=== PATIENT | male | born 1955 | race African-American/Black ===

== ENCOUNTER 2022-08-22 19:28 | Inpatient (IN) | payer OTHER ==
[~2022-08-22] VITALS: Ht 172.7 cm; Wt 68.9 kg
[2022-08-22 19:33] VITALS: BP_SYST 147
--- NOTE | 2022-08-22 19:41 | NUR ---
Patient to ER bed 06 to gown for evaluation. Side rails up. Report given to SANTO APONTE.
--- NOTE | 2022-08-22 20:02 | NUR ---
Dr. GRAY at bedside examining the patient.
--- NOTE | 2022-08-22 20:03 | NUR ---
PT AOX3 NAD, EVEN UNLABORED RR. ACCORDING TO PT, PT SAT DOWN AND SOMEONE CALLED AN AMBULANCE. PT STATES HE LIVES WITH HIS SON. ACCORDING TO REPORT SON WAS CALLED AND IS ON HIS WAY. SAFETY RAILS IN PLACE CONNECTED TO VS MONITOR.
[2022-08-22] MEDS ORDERED: NACL 0.9% 1,000 ML IV ONE (20:15)
[2022-08-22 20:21] LABS: BASOPHILS # (AUTO) 0.1 K/uL (0.0-0.2); BASOPHILS % (AUTO) 1.2 % (0.0-2.0); EOSINOPHILS # (AUTO) 0.1 K/uL (0.0-0.4); EOSINOPHILS % (AUTO) 2.6 % (0.0-4.0); HEMATOCRIT 41.2 % (36-54); HEMOGLOBIN 13.7 g/dL (14.0-18.0); LYMPHOCYTES # (AUTO) 1.4 K/uL (1.0-5.5); LYMPHOCYTES % (AUTO) 28.5 % (20.5-51.5); MEAN CORPUSCULAR HEMOGLOBIN 29 pg (27-31); MEAN CORPUSCULAR HGB CONC 33 % (32-36); MEAN CORPUSCULAR VOLUME 88 fL (79.0-98.0); MONOCYTES # (AUTO) 0.6 K/uL (0.0-1.0); MONOCYTES % (AUTO) 12.6 % (1.7-9.3); NEUTROPHILS # (AUTO) 2.8 K/uL (1.8-7.7); NEUTROPHILS % (AUTO) 55.1 % (40.0-70.0); PLATELET COUNT (AUTO) 193 K/uL (130-430); RED BLOOD CELL COUNT(AUTO) 4.69 MIL/uL (4.2-6.2); RED CELL DISTRIBUTION WIDTH 15.6 % (9.0-15.0); WHITE BLOOD COUNT (AUTO) 5.1 K/uL (4.8-10.8)
[2022-08-22 20:25] LABS: ANION GAP 6 (5-15); CALCIUM 8.4 mg/dL (8.4-11.0); CHLORIDE 104 mmol/L (98-107); CREATININE 1.02 mg/dL (0.55-1.30); GFR AFRICAN AMERICAN 93 mL/min (>90); GLUCOSE 88 mg/dL (70-99); UREA NITROGEN, BLOOD 20 mg/dL (8-21)
[2022-08-22 20:33] LABS: ALANINE AMINOTRANSFERASE 14 U/L (12-78); ALBUMIN 3.5 g/dL (3.4-4.8); ASPARTATE AMINOTRANSFERASE 13 U/L (10-37); TOTAL BILIRUBIN 0.4 mg/dL (0.0-1.0)
[2022-08-22 21:00] LABS: BILIRUBIN,URINE NEGATIVE (NEGATIVE); BLOOD, URINE NEGATIVE (NEGATIVE); COLOR,URINE YELLOW (YELLOW); GLUCOSE,URINE NEGATIVE (NEGATIVE); KETONES,URINE NEGATIVE (NEGATIVE); NITRITE, URINE NEGATIVE (NEGATIVE); PROTEIN URINE NEGATIVE (NEGATIVE)
[2022-08-22 21:08] LABS: BACTERIA,URINE MANY /HPF (None Seen); CLARITY/URINE HAZY (CLEAR); LEUKOCYTE ESTERASE ,URINE 1+ (NEGATIVE); RBC,URINE 0-3 /HPF (0-3); UROBILINOGEN,URINE >=8 (0.2-1.0)
[2022-08-22 21:09] LABS: MUCUS,URINE None Seen /LPF (None Seen)
[2022-08-22] MEDS ORDERED: cefTRIAXone 1 GM in D5W 50 ML IV ONE (21:30)
[2022-08-22] MEDS ORDERED: cefTRIAXone 1 GM VIAL ONE (22:13)
--- NOTE | 2022-08-22 23:59 | NUR ---
Admit bed requested Patient will be admitted to care of Dr. Gonzalez Admitted to Telemetry unit. Diagnosis UTI Inpatient (Yes or No) Yes Observation (Yes or No) No Orientation concerns or request close to nursing station (Yes or No) Yes Covid Status NA On vent or bipap No Isolation requirements No Needs a sitter No From Home (Yes or if No enter name of facility) Yes Requires Dialysis (Yes or No) No Med Rec Completed (Yes of No) yes
[2022-08-23] MEDS ORDERED: LOSA100T4 PO (00:02)
[2022-08-23] MEDS ORDERED: NOR10 PO (00:02)
[2022-08-23] MEDS ORDERED: THIA100T73 PO (00:03)
[2022-08-23] MEDS ORDERED: MAGN100T3 PO (00:05)
[2022-08-23] MEDS ORDERED: ALBU2.5V7 INH (00:13)
[2022-08-23] MEDS ORDERED: FLUT200B INH (00:27)
--- NOTE | 2022-08-23 01:50 | NUR ---
LESTER MEJIA NUMBER [phone] CONTACT WITH ANY UPDATE OR QUESTIONS
[2022-08-23] MEDS: D5/0.45 NS 1,000 ML IV SCH ×2 (02:32→15:55)
--- NOTE | 2022-08-23 04:23 | NUR ---
pt iv site came out, started new site, pt c/o left shoulder pain, will make md aware. back in bed safety rails up, fluids started again, connected to continous monitoring.
--- NOTE | 2022-08-23 04:23 | NUR ---
# 20 gauge angiocath placed to lfa. Use of asceptic technique. Opsite placed over site. Blood return noted. Blood for lab drawn from site. Flushed with 10 cc of normal saline. No evidence of infiltration noted. Patient tolerated well.
[2022-08-23] MEDS ORDERED: MORPHINE 4 MG INJ. 4 MG/ML VIAL IVP ONE (04:30)
[2022-08-23 04:42] LABS: BASOPHILS # (AUTO) 0.1 K/uL (0.0-0.2); BASOPHILS % (AUTO) 1.1 % (0.0-2.0); EOSINOPHILS # (AUTO) 0.1 K/uL (0.0-0.4); EOSINOPHILS % (AUTO) 2.7 % (0.0-4.0); HEMATOCRIT 39.9 % (36-54); HEMOGLOBIN 13.2 g/dL (14.0-18.0); LYMPHOCYTES # (AUTO) 1.6 K/uL (1.0-5.5); MEAN CORPUSCULAR HEMOGLOBIN 29 pg (27-31); MEAN CORPUSCULAR HGB CONC 33 % (32-36); MEAN CORPUSCULAR VOLUME 87 fL (79.0-98.0); MONOCYTES # (AUTO) 0.7 K/uL (0.0-1.0); MONOCYTES % (AUTO) 14.3 % (1.7-9.3); NEUTROPHILS # (AUTO) 2.4 K/uL (1.8-7.7); NEUTROPHILS % (AUTO) 48.9 % (40.0-70.0); PLATELET COUNT (AUTO) 186 K/uL (130-430); RED BLOOD CELL COUNT(AUTO) 4.57 MIL/uL (4.2-6.2); RED CELL DISTRIBUTION WIDTH 15.6 % (9.0-15.0)
--- NOTE | 2022-08-23 04:46 | NUR ---
pt appears sleeping, eyes closed, vss nad even unlabored breathing connected to continous vs monitor safety rails in place.
[2022-08-23 05:43] LABS: ALBUMIN 3.2 g/dL (3.4-4.8); CALCIUM 8.1 mg/dL (8.4-11.0); CREATININE 0.97 mg/dL (0.55-1.30); TOTAL BILIRUBIN 0.4 mg/dL (0.0-1.0)
--- NOTE | 2022-08-23 06:57 | NUR ---
pt appears sleeping, eyes closed, vss nad even unlabored breathing connected to continous vs monitor safety rails in place.
--- NOTE | 2022-08-23 06:58 | NUR ---
pt now sitting on edge of bed pt vss nad even unlabored breathing connected to continous vs monitor safety rails in place.
--- NOTE | 2022-08-23 07:01 | NUR ---
please follow up with son and social work. son stated last night their section 8 was lost and does not know if he will have a place for his to father to come home to. flagged social help on interventions. pt gait is unsteady. earlier in the am, pt was assisted to bathroom and gait was very slow and unsteady. pt used cane. possible need for pt eval.
--- NOTE | 2022-08-23 07:50 | NUR ---
REPORT RECEIVED FROM SANTO APONTE FOR CONTINUITY OF CARE. PATIENT IN STABLE CONDITION.
[2022-08-23] MEDS: cefTRIAXone 1 GM IVPB PREMIX 50 ML IV SCH ×2 (08:13)
--- NOTE | 2022-08-23 08:15 | NUR ---
Patient will be admitted to care of Maya RN. Admitted to unit. Will go to room . Belongings list completed. Complete and up to date summary report printed. SBAR report to be given at bedside with opportunity for questions.
[2022-08-23] MEDS ORDERED: POTASSIUM CHLORIDE 20 MEQ TAB.PRT.SR PO ONE (08:30)
[2022-08-23 08:35] VITALS: BP_SYST 179
--- NOTE | 2022-08-23 08:35 | NUR ---
Admission Note Received patient from ER with diagnosis of UTI. Initial Plan of Care discussed-patient unable to verbalize his understanding-poor concentration/confused at times. Oriented to room, call light, pain management and safety. Side rails up x3, bed alarm on and room close to nursing station for safety. Pt encouraged to call nursing for asssist out of bed for safety-pt stated "okay". Call light within reach.
[2022-08-23 09:22] VITALS: BP_SYST 179
--- NOTE | 2022-08-23 11:15 | NUR ---
ROUNDS/OOB Pt assisted to the bathroom after pt trying to get out of bed by himself-he almost pulled out his IV line, pt reminded to call nursing for safety because he has IVF-pt stated " I forgot, just let me get to the bathroom". Pt with very unsteady gait-uses his own cane. Pt assisted back into bed, fresh gown and non-skid socks placed on pt, clean chix placed. All safety precautions remain in place. Pt shown call light and instructed on which button to push for assist out of bed. Call light within reach.
--- NOTE | 2022-08-23 15:33 | NUR ---
ROUNDS PT SLEEPING COMFORTABLY, NO APPEARENT DISTRESS. CALL LIGHT WITH IN REACH.
[2022-08-23 16:51] VITALS: BP_SYST 152
[2022-08-23 19:00] VITALS: BP_SYST 148
[2022-08-23 20:00] VITALS: BP_SYST 148
[2022-08-23] MEDS: BUDESONIDE 0.5 MG/2 ML AMPUL.NEB INH SCH (20:01)
--- NOTE | 2022-08-23 22:10 | NUR ---
CONSULTATION PAGED REASON FOR CONSULTATION: UTI WAS CONSULT CALLED? Y PERSON WHO WAS NOTIFIED: YOJANA CONSULTING PHYSICIAN: Dahiana [facility] SPECIALTY: [facility] PHONE NUMBER: [phone] REQUESTING PHYSICIAN: VESNA
[2022-08-24 00:07] VITALS: BP_SYST 149
[2022-08-24] MEDS: D5/0.45 NS 1,000 ML IV SCH ×2 (02:40→16:34)
[2022-08-24] MEDS: TEMAZEPAM 7.5 MG CAPSULE PO PRN (04:07)
[2022-08-24 06:17] LABS: BASOPHILS # (AUTO) 0.1 K/uL (0.0-0.2); BASOPHILS % (AUTO) 1.5 % (0.0-2.0); EOSINOPHILS # (AUTO) 0.1 K/uL (0.0-0.4); EOSINOPHILS % (AUTO) 3.1 % (0.0-4.0); HEMATOCRIT 41.6 % (36-54); LYMPHOCYTES # (AUTO) 1.4 K/uL (1.0-5.5); LYMPHOCYTES % (AUTO) 32.5 % (20.5-51.5); MEAN CORPUSCULAR HEMOGLOBIN 30 pg (27-31); MEAN CORPUSCULAR HGB CONC 34 % (32-36); MEAN CORPUSCULAR VOLUME 88 fL (79.0-98.0); MONOCYTES # (AUTO) 0.6 K/uL (0.0-1.0); MONOCYTES % (AUTO) 14.8 % (1.7-9.3); NEUTROPHILS # (AUTO) 2.1 K/uL (1.8-7.7); NEUTROPHILS % (AUTO) 48.1 % (40.0-70.0); PLATELET COUNT (AUTO) 184 K/uL (130-430); RED BLOOD CELL COUNT(AUTO) 4.76 MIL/uL (4.2-6.2); RED CELL DISTRIBUTION WIDTH 15.6 % (9.0-15.0); WHITE BLOOD COUNT (AUTO) 4.3 K/uL (4.8-10.8)
[2022-08-24 06:34] LABS: CALCIUM 8.9 mg/dL (8.4-11.0); CREATININE 0.95 mg/dL (0.55-1.30)
[2022-08-24] MEDS: BUDESONIDE 0.5 MG/2 ML AMPUL.NEB INH SCH ×2 (07:44→21:30)
[2022-08-24 08:24] VITALS: BP_SYST 197
[2022-08-24] MEDS ORDERED: FLUTICASONE FUROATE 200 MCG BLST.W.DEV INH SCH (09:00)
--- NOTE | 2022-08-24 10:02 | NUR ---
Jaquan, son, , call regarding update and requests thiamine given. Aware of urinary and blood pressure issues.
[2022-08-24] MEDS: amLODIPine BESYLATE 10 MG TABLET PO SCH (10:04)
[2022-08-24] MEDS: LOSARTAN POTASSIUM 50 MG TABLET (COZAAR) PO SCH (10:04)
[2022-08-24] MEDS: THIAMINE HCL 100 MG TABLET PO SCH (10:05)
--- NOTE | 2022-08-24 13:35 | NUR ---
CM spoke with patient son Tan [phone] regarding DCP. Son is requesting a SNF upon discharge as he has no home for his father to go to; also requests a SW consult. CM notified SW
[2022-08-24 13:53] VITALS: BP_SYST 162
--- NOTE | 2022-08-24 16:47 | NUR ---
Tag Press Operator re: child welfare social worker referral Attempted to speak with patient at bedside, however he was not able to answer the necessary questions needed for the interview. The patient presented confused and lethargic. I spoke with the son, Tan Lucas who advised that he and his father are homeless and have been residing in motels for about 3-4 months. He stated they have been working to get his section [address] He is relocating himself and the patient to [place] from [place]. I advised the son that I would provide some resources that would be beneficial for the patient. The son is aware that the CM is working to move towards SNF placement on the patient's behalf, which the son is in agreement with. Homeless resources were left for the son at bedside for his review.
[2022-08-24 19:01] VITALS: BP_SYST 138
[2022-08-24 20:00] VITALS: BP_SYST 144
[2022-08-25] MEDS: TEMAZEPAM 7.5 MG CAPSULE PO PRN (00:45)
[2022-08-25] MEDS ORDERED: cefTRIAXone 1 GM VIAL ONE (01:11)
[2022-08-25] MEDS: cefTRIAXone 1 GM IVPB PREMIX 50 ML IV SCH (01:26)
[2022-08-25 01:49] VITALS: BP_SYST 142
[2022-08-25] MEDS: D5/0.45 NS 1,000 ML IV SCH (05:20)
[2022-08-25 08:05] VITALS: BP_SYST 144
[2022-08-25] MEDS: BUDESONIDE 0.5 MG/2 ML AMPUL.NEB INH SCH (08:10)
[2022-08-25] MEDS: THIAMINE HCL 100 MG TABLET PO SCH (10:04)
[2022-08-25] MEDS: amLODIPine BESYLATE 10 MG TABLET PO SCH (10:05)
[2022-08-25] MEDS: LOSARTAN POTASSIUM 50 MG TABLET (COZAAR) PO SCH (10:05)
[2022-08-25] MEDS ORDERED: LEVO750T64 PO (11:05)
--- NOTE | 2022-08-25 12:09 | NUR ---
Patient accepted at [facility] for PT. CM notified patient son. Addendum: 08/25/22 at 1211 by aDysi Hilliard RN Son notified at 0900.
--- NOTE | 2022-08-25 12:11 | NUR ---
patient will DC to [facility] today after neurology clearance. Patient will go to room 119A. Addendum: 08/25/22 at 1215 by Daysi Hilliard RN Error; wrong patient. No neuro clearance needed.
--- NOTE | 2022-08-25 12:34 | NUR ---
Transportation arranged with [facility] [phone]. ETA quill picking machine operator is 2:30pm. RN aware and packet placed on unit. will update patient son. Addendum: 08/25/22 at 1244 by Daysi Hilliard RN Edouard Maddox updated at 0746p
[2022-08-25 13:06] VITALS: BP_SYST 138
[2022-08-25 13:22] VITALS: BP_SYST 138
--- NOTE | 2022-08-25 13:51 | NUR ---
D/C Patient Patient discharge to [facility] per MD order. SBAR report given to receiving nurse Eldon. Discharge instructions/package given to ambulance staff [facility] Patient verbalized understanding. MD discussed with patient the results and treatment provided. Ambulatory with steady gait for discharge to home. Patient in stable condition, ID band removed. IV catheter removed, intact and dressing applied, no active bleeding. Rx of given. Patient educated on pain management. All belongings sent with patient.
[2022-08-25] MEDS ORDERED: cefTRIAXone 1 GM IVPB PREMIX 50 ML IV SCH (21:00)
== END 2022-08-25 14:20 | DRG 92 ==
LOC: EDBD 19:28 → SED 19:28 → STU 23:48 → SMU 08-24 08:56
PROVIDERS: ADMIT Internal Medicine; ATTEND Internal Medicine
DX: G92.9 Unspecified toxic encephalopathy (principal); E44.0 Moderate protein-calorie malnutrition; N39.0 Urinary tract infection, site not specified; F03.90 Unspecified dementia, unspecified severity, without behavioral disturbance, psychotic disturbance, mood disturbance, and anxiety; I10 Essential (primary) hypertension; J45.909 Unspecified asthma, uncomplicated; Z68.23 Body mass index [BMI] 23.0-23.9, adult
CPT/HCPCS: 36415; 71045; 80048; 80053; 81000; 82962; 83735; 83880; 84484; 85025; 87086; 94640; 94760; 96361; 96365; 96375; 97116-GP; 97530-GP; 99285; G0378; J0696; J2270; J7060; J7626